=== PATIENT | female | born 1990 ===

== ENCOUNTER 2019-06-27 12:19 | Emergency (ER) | payer SELFPAY ==
[~2019-06-27] VITALS: Ht 160 cm; Wt 92.7 kg
[2019-06-27 12:22] VITALS: Ht 160 cm; Wt 92.7 kg
[2019-06-27] MEDS ORDERED: PROCARDIA XL60 MG PO (12:23)
[2019-06-27] MEDS ORDERED: DEPO SHOT (12:32)
[2019-06-27 13:04] LABS: BASOPHILS 0 % (0-2); HEMATOCRIT 38.2 % (36.0-48.0); HEMOGLOBIN 12.9 g/dL (12-16); IMMATURE GRANULOCYTES 0.4 % (0-5); LYMPHOCYTES 25.4 % (15-50); MCH 30.9 pg (26.0-34.0); MCHC 33.8 g/dL (31.0-37.0); MCV 91.6 fL (80.0-100.0); MEAN PLATELET VOLUME 12.9 fL (7.4-10.4); MONOCYTES 5.9 % (2-11); NEUTROPHILS 66.3 % (40-80); PLATELET COUNT 126 10x3/uL (130-400); RBC 4.17 10x6/uL (4.00-5.40); RDW 12.6 % (11.5-14.5); WBC 4.9 10x3/uL (4.8-10.8)
[2019-06-27 13:24] LABS: APTT 28.7 SECONDS (22.8-39.4); INR 0.95 (0.85-1.17); PROTIME 12.7 SECONDS (11.6-15.0)
[2019-06-27 13:27] LABS: ALBUMIN 3.7 g/dL (3.4-5.0); ALKALINE PHOSPHATASE 99 U/L (30-120); ALT (SGPT) 55 U/L (10-68); BILIRUBIN - TOTAL 0.78 mg/dL (0.2-1.3); CALC OSMOLALITY 282 mosm/kg (275-300); CALCIUM 8.5 mg/dL (8.5-10.1); CARBON DIOXIDE 24.1 mmol/L (21.0-32.0); CHLORIDE - SERUM 105 mmol/L (98-107); CKMB 0.3 U/L (0.0-3.6); CREATINE KINASE 70 UL (21-215); CREATININE - SERUM 0.7 mg/dL (0.6-1.3); GLUCOSE 166 mg/dL (74-106); PROTEIN - SERUM 7.2 g/dL (6.4-8.2); SODIUM 141 mmol/L (136-145); THYROID STIMULATING HORMONE 0.71 uIU/mL (0.36-3.74); UREA NITROGEN 6 mg/dL (7-18); eGFR NON AFRICAN AMERICAN > 90 mL/min (90-120)
[2019-06-27 13:30] LABS: TROPONIN-I < 0.017 ng/mL (0.000-0.060)
[2019-06-27 13:31] LABS: POTASSIUM - SERUM 2.9 mmol/L (3.5-5.1)
[2019-06-27 13:59] LABS: BACTERIA MODERATE /hpf (NEGATIVE); BILIRUBIN NEGATIVE (NEGATIVE); EPITHELIAL CELLS 0-5 /hpf (0-5); GLUCOSE NEGATIVE (NEGATIVE); KETONE NEGATIVE (NEGATIVE); NITRITE NEGATIVE (NEGATIVE); RED CELLS - URINE NONE SEEN /hpf (0-5); SPECIFIC GRAVITY 1.005 (1.005-1.020); UROBILINOGEN NORMAL (NORMAL); WHITE CELLS - URINE RARE /hpf (NEGATIVE)
[2019-06-27 14:18] LABS: HCG URINE NEGATIVE (NEGATIVE)
[2019-06-27 15:00] VITALS: BP 164/96
== END 2019-06-27 15:00 | disposition home or self-care (01) ==
LOC: D.ER 12:19
PROVIDERS: Family Medicine
DX: E87.6 Hypokalemia (principal); N76.0 Acute vaginitis; I10 Essential (primary) hypertension; R55 Syncope and collapse